=== PATIENT | male | born 1970 | race Caucasian/White ===

== ENCOUNTER 2019-06-04 09:53 | Emergency (ER) | payer SELFPAY ==
[2019-06-04] MEDS ORDERED: HYDROmorphone 0.5 MG/0.5 ML Syringe IVPUSH ONE ×2 (11:12→13:39)
[2019-06-04] MEDS ORDERED: Sodium Chloride 0.9% 10 ML Syringe FLUSH PRN (11:12)
[2019-06-04] MEDS ORDERED: Sodium Chloride 0.9% 1,000 ML IV SCH (11:15)
--- NOTE | 2019-06-04 11:21 | EDM.PDOC ---
ED HPI GENERAL MEDICAL PROBLEM - General Chief Complaint: Skin Complaint Stated Complaint: ABCESS ON LEG X 2 Time Seen by Provider: 06/04/19 11:20 Source of Information: Reports: Patient History Limitations: Reports: No Limitations - History of Present Illness INITIAL COMMENTS - FREE TEXT/NARRATIVE: Patient is a 48-year-old male who presents to the ED complaining of right posterior leg pain. Pain is isolated to the midportion of his hamstring and radiates down to the midportion of his calf. This started this past week Tuesday after being admitted to the hospital for chest pain rule out. Patient was evaluated at the [facility] ER for chest pain. He was transferred from [place] to [facility] and admitted for 24-hour observation. They advised it was not his heart. During that time he developed pain to the posterior aspect of his calf. States he can feel 2 knots to the right calf and also to the posterior aspect of his upper leg with some redness that developed. He's had some chills but denies any chest pain, shortness of breath, abdominal pain, nausea or vomiting, or any additional complaints. States with any plantar and dorsiflexion of the right foot the pain gets worse. He does have pain with ambulation. He has no history of blood clots. States he was seen by his PCP on Tuesday with ultrasound obtained to rule out blood clot to which none was noted. He questions if there is a blood clot now and/or possible cellulitis since swelling and pain have worsened. He's had a history of AAA repair as well as coronary artery stent. Again he denies any abdominal pain, tearing sensation to his abdomen or leg. He is on plavix and ASA. Right Posterior Leg Pain Score (Numeric/FACES): 7 - Related Data Allergies Allergy/AdvReac Type Severity Reaction Status Date / Time morphine Allergy Itching Verified 06/04/19 10:32 Tetanus Vaccines and Toxoid Allergy Swelling Verified 06/04/19 10:32 Home Meds: Home Meds Acetaminophen/HYDROcodone [Rochester 325-5 MG] 1 tab PO Q6H PRN #8 tablet 06/04/19 [ Rx] Aspirin [Halfprin] 81 mg PO DAILY 06/04/19 [History] Clopidogrel Bisulfate [Plavix] 75 mg PO DAILY 06/04/19 [History] Doxycycline [Vibramycin] 100 mg PO BID #20 cap 06/04/19 [Rx] Enalapril [Vasotec] 10 mg PO DAILY 06/04/19 [History] Past Medical History Cardiovascular History: Reports: High Cholesterol, Hypertension, Other (See Below) Other Cardiovascular History: Triple A repair 6 years ago Psychiatric History: Reports: Addiction Endocrine/Metabolic History: Reports: Other (See Below) Other Endocrine/Metabolic History: border line diabetic "i think I take a pill for that too" - Past Surgical History Cardiovascular Surgical History: Reports: AAA Repair, Coronary Artery Stent, Other (See Below) Other Cardiovascular Surgeries/Procedures: 3 stents Social & Family History - Tobacco Use Smoking Status *Q: Current Every Day Smoker Years of Tobacco use: 30 Packs/Tins Daily: 1 - Caffeine Use Caffeine Use: Reports: Coffee - Recreational Drug Use Recreational Drug Use: Yes Drug Use in Last 12 Months: Yes Recreational Drug Type: Reports: Methamphetamine ED ROS GENERAL - Review of Systems Review Of Systems: ROS reveals no pertinent complaints other than HPI. ED EXAM, SKIN/RASH Exam: See Below Exam Limited By: No Limitations General Appearance: Alert, WD/WN, Mild Distress Ears: Hearing Grossly Normal Nose: Normal Inspection Throat/Mouth: Normal Inspection, Normal Oropharynx, Normal Voice, No Airway Compromise Head: Atraumatic, Normocephalic Neck: Normal Inspection, Supple, Non-Tender, Full Range of Motion Respiratory/Chest: No Respiratory Distress, Lungs Clear, Normal Breath Sounds, No Accessory Muscle Use, Chest Non-Tender Cardiovascular: Normal Peripheral Pulses, Regular Rate, Rhythm, No Murmur Peripheral Pulses: 2+: Radial (R), Femoral (L), Femoral (R), Posterior Tibial (L ), Posterior Tibial (R) GI/Abdominal: Normal Bowel Sounds, Soft, Non-Tender, No Organomegaly, No Distention Back Exam: Normal Inspection Neurological: Alert, Oriented, CN II-XII Intact, Normal Cognition, No Motor/ Sensory Deficits Psychiatric: Normal Affect, Normal Mood Skin: Warm, Dry, Intact, Normal Color Comments: Mild swelling noted with palpation of the mid aspect of the right posterior thigh with erythema present. No open sores or redness streaking up his leg. He also some pain to the mid calf with palpation with a small knot present. No sensory changes. With passive dorsiflexion and plantarflexion there is increasing pain to his posterior leg. Course - Vital Signs Last Recorded V/S: Last Vital Signs Temp 97.4 F 06/04/19 10:34 Pulse 96 06/04/19 15:20 Resp 20 06/04/19 15:20 BP 119/78 06/04/19 15:20 Pulse Ox 96 06/04/19 15:20 - Orders/Labs/Meds Labs: Laboratory Tests 06/04/19 06/04/19 06/04/19 Range/Units 11:25 11:25 14:05 WBC 12.90 H (4.23-9.07) K/mm3 RBC 4.52 L (4.63-6.08) M/mm3 Hgb 12.5 L (13.7-17.5) gm/dl Hct 38.0 L (40.1-51.0) % MCV 84.1 (79.0-92.2) fl MCH 27.7 (25.7-32.2) pg MCHC 32.9 (32.2-35.5) g/dl RDW Std Deviation 39.8 (35.1-43.9) fL Plt Count 379 H (163-337) K/mm3 MPV 9.1 L (9.4-12.3) fl Neut % (Auto) 72.6 H (34.0-67.9) % Lymph % (Auto) 15.0 L (21.8-53.1) % Gregory % (Auto) 9.5 (5.3-12.2) % Eos % (Auto) 2.5 (0.8-7.0) Baso % (Auto) 0.2 (0.1-1.2) % Neut # (Auto) 9.37 H (1.78-5.38) K/mm3 Lymph # (Auto) 1.94 (1.32-3.57) K/mm3 Gregory # (Auto) 1.22 H (0.30-0.82) K/mm3 Eos # (Auto) 0.32 (0.04-0.54) K/mm3 Baso # (Auto) 0.02 (0.01-0.08) K/mm3 Sodium 138 (136-145) mEq/L Potassium 3.6 (3.5-5.1) mEq/L Chloride 102 (98-107) mEq/L Carbon Dioxide 29 (21-32) mEq/L Anion Gap 10.6 (5-15) BUN 19 H (7-18) mg/dL Creatinine 1.0 (0.7-1.3) mg/dL Est Cr Clr Drug Dosing 95.17 mL/min Estimated GFR (MDRD) > 60 (>60) mL/min BUN/Creatinine Ratio 19.0 H (14-18) Glucose 111 H (74-106) mg/dL Lactic Acid 1.6 (0.4-2.0) mmol/L Calcium 8.7 (8.5-10.1) mg/dL Total Bilirubin 0.2 (0.2-1.0) mg/dL AST 4 L (15-37) U/L ALT 20 (16-63) U/L Alkaline Phosphatase 89 (46-116) U/L C-Reactive Protein 12.9 H* (<1.0) mg/dL Total Protein 7.2 (6.4-8.2) g/dl Albumin 2.7 L (3.4-5.0) g/dl Globulin 4.5 gm/dL Albumin/Globulin Ratio 0.6 L (1-2) Meds: Medications Discontinued Medications Generic Name Dose Route Start Last Admin Trade Name Freq PRN Reason Stop Dose Admin Doxycycline Hyclate 100 mg 06/04/19 13:32 06/04/19 14:18 Vibramycin PO 06/04/19 13:33 100 mg ONETIME ONE Administration Hydromorphone HCl 0.5 mg 06/04/19 11:12 06/04/19 11:26 Dilaudid IVPUSH 06/04/19 11:13 0.5 mg ONETIME ONE Administration Hydromorphone HCl 0.5 mg 06/04/19 13:39 06/04/19 14:16 Dilaudid IVPUSH 06/04/19 13:40 0.5 mg ONETIME ONE Administration Sodium Chloride 1,000 mls @ 250 mls/hr 06/04/19 11:15 06/04/19 13:41 Normal Saline IV 999 mls/hr ASDIRECTED LANA Infusion Cefazolin Sodium/Dextrose 1 gm 50 mls @ 100 mls/hr 06/04/19 13:23 / Premix IV 06/04/19 13:52 ONETIME ONE Doxycycline Hyclate 100 mg/ 100 mls @ 100 mls/hr 06/04/19 13:32 06/04/19 14: 17 Sodium Chloride IV 06/04/19 14:31 100 mls/hr ONETIME ONE Administration Sodium Chloride 10 ml 06/04/19 11:12 06/04/19 11:27 Saline Flush FLUSH 10 ml ASDIRECTED PRN Administration Keep Vein Open - Re-Assessments/Exams Free Text/Narrative Re-Assessment/Exam: Patient may have a DVT or cellulitis sites developing. I will obtain medical records from [facility] from recent hospitalization. I will also rule out DVT by ultrasound. Initial labs and studies will include: CBC, chem 14, CRP, and also revealed duplex of the right lower extremity. I ordered IV with Dilaudid and normal saline. 1200 Labs reviewed: White blood cell count 12.90, hemoglobin low at 12.5, platelet count high as 379, neutrophil percent is 72.6 with slight left shift 9.37. Sodium 138, potassium 3.6, AG 10.6, creatinine normal. Glucose 111. CRP is 12.9. 06/04/19 12:33 no results ultrasound results as of yet. 06/04/19 13:23 Ultrasound impression: 2 findings within posterior right thigh with measurements as noted above most likely representing liquefying hematomas. 06/04/19 13:[address] Vidal [facility] General Surgeon. Suspects findings may related to an abscess with his history of drug use. Recommended placing the patient on doxycycline 100 mg twice a day with close follow-up. 1338 Reassessment, HR 104 pain moderate intensity. With history of chills will obtain lactic acid and blood cultures x 2 prior to antibiotics. Ordered dilaudid 0.5mg IVP and remainder of IVF's to be ran in at 999mls/hr. 06/04/19 14:19 Blood cultures and lactic acid was just ordered. 06/04/19 14:53 Lactic acid 1.6. I will discharge patient home with prescription for doxycycline. Patient will call Dr. Vidal [facility] today/ tomorrow to schedule an appt. Return precautions discussed with patient. He agreed with plan and had no further questions or concerns. Discharge instructions as documented. Departure - Departure Time of Disposition: 14:57 Disposition: Home, Self-Care 01 Condition: Good Clinical Impression: Cellulitis and abscess of right leg Hematoma of right thigh Qualifiers: Encounter type: initial encounter Qualified Code(s): S70.11XA - Contusion of right thigh, initial encounter - Discharge Information Prescriptions: Acetaminophen/HYDROcodone [Rochester 325-5 MG] 1 tab PO Q6H PRN #8 tablet PRN Reason: Pain (Severe 7-10) Doxycycline [Vibramycin] 100 mg PO BID #20 cap Instructions: Skin Abscess, Cellulitis, Adult Referrals: Telma Hooks, FLOOR FINISHER [Primary Care Provider] - Forms: ED Department Discharge Additional Instructions: Please call Dr. Vidal with General Surgery at [facility] office today or tomorrow to schedule an appt to be evaluated the end of this week. Take the full course of doxycycline as prescribed. Apply warm compresses to the affected area 4 times a day, 30 minutes in duration. Take Aleve one to 2 tabs twice a day as needed for pain. For severe pain take Rochester one tab every [address] while taking the Rochester. Do not drive today since receiving a sedative medication. Monitor for any new or worsening symptoms. If so return back to the ED for reevaluation.
--- NOTE | 2019-06-04 13:03 | US ---
Right lower extremity deep venous ultrasound: Duplex and color flow imaging was obtained of the right common femoral, proximal greater saphenous, superficial femoral, popliteal, posterior tibial and peroneal veins. Left common femoral vein is also evaluated. Findings: Two complicated cystic structures are seen within the posterior right thigh. One of these findings measure 8.5 x 4.4 x 3.4 cm and second finding measures 4.7 x 3.3 x 2.6 cm. These findings are most likely due to partially liquefying hematomas. Normal phasic flow, augmentation and compression are seen. Impression: 1. Two findings within the posterior right thigh with measurements as noted above most likely representing liquefying hematomas. Aspiration would confirm if clinically needed. 2. No evidence of deep venous thrombosis is seen within the right lower extremity or within the left common femoral vein. Diagnostic code #3
[2019-06-04] MEDS ORDERED: ceFAZolin 1 GM in Premix Bag 1 BAG IV ONE (13:23)
[2019-06-04] MEDS ORDERED: Doxycycline 100 MG Cap PO ONE (13:32)
[2019-06-04] MEDS ORDERED: Doxycycline 100 MG in Sodium Chloride 0.9% 100 ML IV ONE (13:32)
== END 2019-06-04 15:20 | disposition home or self-care (01) ==
LOC: JD.ED 09:53
DX: M79.81 Nontraumatic hematoma of soft tissue (principal); L02.415 Cutaneous abscess of right lower limb; L03.115 Cellulitis of right lower limb; I10 Essential (primary) hypertension; F17.210 Nicotine dependence, cigarettes, uncomplicated; Z88.5 Allergy status to narcotic agent; Z88.7 Allergy status to serum and vaccine; Z79.82 Long term (current) use of aspirin; Z79.02 Long term (current) use of antithrombotics/antiplatelets; Z79.899 Other long term (current) drug therapy
CPT/HCPCS: 36415; 80053; 83605; 85025; 86140; 87040; 93971; 96361; 96365; 96375; 96376; 99283; A9270; J1170; J3490; J7030; J7040; 99284

== ENCOUNTER 2019-09-20 11:56 | Emergency (ER) | payer SELFPAY ==
[2019-09-20] MEDS ORDERED: Sodium Chloride 0.9% 10 ML Syringe FLUSH PRN (12:29)
--- NOTE | 2019-09-20 14:42 | EDM.PDOC ---
ED HPI GENERAL MEDICAL PROBLEM - General Chief Complaint: Lower Extremity Injury/Pain Stated Complaint: SWOLLEN RIGHT LEG Time Seen by Provider: 09/20/19 12:25 Source of Information: Reports: Patient, RN Notes Reviewed - History of Present Illness INITIAL COMMENTS - FREE TEXT/NARRATIVE: 49-year-old male has presented to our ED with concerns about possible right leg , foot and ankle infection. He has history of soft tissue infection of the right lower extremity and also osteomyelitis right lower extremity. Presents here today because he had bee on a 4 month course of IV antibiotics and states he stopped IV antibiotics 5 days early to catch a ride from [place] up here to [place] which is where he normally lives and works. He does have continued mild right ache of the right foot and ankle and also has had some residual swelling of the right lower leg foot and ankle but never did go away. He has not been running recent fever or chills. He is currently ambulatory without difficulty. No current obvious infected lesions. - Related Data Allergies Allergy/AdvReac Type Severity Reaction Status Date / Time morphine Allergy Itching Verified 09/20/19 12:07 Tetanus Vaccines and Toxoid Allergy Swelling Verified 09/20/19 12:07 Home Meds: Home Meds Aspirin [Halfprin] 81 mg PO DAILY 06/04/19 [History] Clopidogrel Bisulfate [Plavix] 75 mg PO DAILY 06/04/19 [History] Enalapril [Vasotec] 10 mg PO DAILY 06/04/19 [History] Doxycycline [Vibramycin] 100 mg PO BID #20 tab 09/20/19 [Rx] Past Medical History Cardiovascular History: Reports: High Cholesterol, Hypertension, Other (See Below) Other Cardiovascular History: Triple A repair 6 years ago Psychiatric History: Reports: Addiction Endocrine/Metabolic History: Reports: Other (See Below) Other Endocrine/Metabolic History: border line diabetic "i think I take a pill for that too" - Past Surgical History Cardiovascular Surgical History: Reports: AAA Repair, Coronary Artery Stent, Other (See Below) Other Cardiovascular Surgeries/Procedures: 3 stents Social & Family History - Tobacco Use Smoking Status *Q: Current Every Day Smoker Years of Tobacco use: 35 Packs/Tins Daily: 1 - Caffeine Use Caffeine Use: Reports: Coffee - Recreational Drug Use Recreational Drug Use: No Review of Systems - Review of Systems Review Of Systems: See Below Constitutional: Denies: Chills, Fever Mouth/Throat: Reports: No Symptoms Respiratory: Denies: Shortness of Breath, Pleuritic Chest Pain Cardiovascular: Denies: Chest Pain GI/Abdominal: Denies: Abdominal Pain, Nausea, Vomiting Musculoskeletal: Reports: Other (Continued mild swelling of right distal lower leg ankle and foot, occasional mild achiness of distal leg ankle and foot) Skin: Reports: No Symptoms Neurological: Reports: No Symptoms ED EXAM, GENERAL - Physical Exam Exam: See Below General Appearance: Alert, No Apparent Distress Throat/Mouth: Normal Inspection, Normal Oropharynx Head: Atraumatic Neck: Supple Respiratory/Chest: No Respiratory Distress, Lungs Clear, Normal Breath Sounds GI/Abdominal: Soft, Non-Tender Extremities: Other (Mild swelling of right distal leg ankle and foot, surgical scars are present distal right ankle and foot medially. No localized warmth or erythema or unusual tenderness. No calf or upper leg tenderness) Skin Exam: Warm, Dry, Normal Color, No Rash Course - Vital Signs Last Recorded V/S: Last Vital Signs Temp 97.8 F 09/20/19 12:05 Pulse 67 09/20/19 12:05 Resp 16 09/20/19 12:05 BP 142/99 H 09/20/19 12:05 Pulse Ox 99 09/20/19 12:05 - Orders/Labs/Meds Labs: Laboratory Tests 09/20/19 09/20/19 09/20/19 Range/Units 12:53 12:53 12:53 WBC 7.19 (4.23-9.07) K/mm3 RBC 3.75 L (4.63-6.08) M/mm3 Hgb 9.7 L D (13.7-17.5) gm/dl Hct 30.2 L (40.1-51.0) % MCV 80.5 D (79.0-92.2) fl MCH 25.9 (25.7-32.2) pg MCHC 32.1 L (32.2-35.5) g/dl RDW Std Deviation 43.0 (35.1-43.9) fL Plt Count 395 H (163-337) K/mm3 MPV 9.0 L (9.4-12.3) fl Neut % (Auto) 55.8 (34.0-67.9) % Lymph % (Auto) 28.5 (21.8-53.1) % Beltrami % (Auto) 11.4 (5.3-12.2) % Eos % (Auto) 3.6 (0.8-7.0) Baso % (Auto) 0.7 (0.1-1.2) % Neut # (Auto) 4.01 (1.78-5.38) K/mm3 Lymph # (Auto) 2.05 (1.32-3.57) K/mm3 Beltrami # (Auto) 0.82 (0.30-0.82) K/mm3 Eos # (Auto) 0.26 (0.04-0.54) K/mm3 Baso # (Auto) 0.05 (0.01-0.08) K/mm3 ESR 52 H (0-15) mm/hr Sodium 140 (136-145) mEq/L Potassium 4.0 (3.5-5.1) mEq/L Chloride 108 H (98-107) mEq/L Carbon Dioxide 22 (21-32) mEq/L Anion Gap 14.0 (5-15) BUN 18 (7-18) mg/dL Creatinine 0.9 (0.7-1.3) mg/dL Est Cr Clr Drug Dosing 101.39 mL/min Estimated GFR (MDRD) > 60 (>60) mL/min BUN/Creatinine Ratio 20.0 H (14-18) Glucose 108 H (74-106) mg/dL Calcium 8.8 (8.5-10.1) mg/dL Total Bilirubin 0.1 L (0.2-1.0) mg/dL AST 22 (15-37) U/L ALT 23 (16-63) U/L Alkaline Phosphatase 94 (46-116) U/L C-Reactive Protein 4.9 H* (<1.0) mg/dL Total Protein 6.7 (6.4-8.2) g/dl Albumin 2.7 L (3.4-5.0) g/dl Globulin 4.0 gm/dL Albumin/Globulin Ratio 0.7 L (1-2) Meds: Medications Discontinued Medications Generic Name Dose Route Start Last Admin Trade Name Freq PRN Reason Stop Dose Admin Doxycycline Hyclate 200 mg 09/20/19 15:36 09/20/19 15:58 Vibramycin PO 09/20/19 15:37 200 mg ONETIME ONE Administration Sodium Chloride 10 ml 09/20/19 12:29 Saline Flush FLUSH ASDIRECTED PRN Keep Vein Open - Re-Assessments/Exams Free Text/Narrative Re-Assessment/Exam: 09/23/19 07:22 White blood count 7190, C-reactive protein 4.9 sedimentation rate 52. Elevated sedimentation rate and C-reactive protein are concerning. He has had what sounds like several months of IV antibiotics. He is living up in [place]. He had to catch a ride to get here today and needs to get back now to [place]. Owing to come on back down for MRI. Did offer the option of seeing a provider [place] and having further investigation done up there but he wants to continue down here. Order has been provided for outpatient MRI right lower leg, ankle and foot to check for residual osteomyelitis outpatient basis. Departure - Departure Time of Disposition: 15:38 Disposition: Home, Self-Care 01 Condition: Fair Clinical Impression: Right leg pain, Right ankle pain, Right foot pain - Discharge Information Prescriptions: Doxycycline [Vibramycin] 100 mg PO BID #20 tab Instructions: Cellulitis, Adult, [id number], Cellulitis, Pediatric Referrals: PCP,Unknown [Primary Care Provider] - Forms: ED Department Discharge Additional Instructions: You have been given doxycycline 200 mg orally while here in the ED. Continue doxycyline 100 mg twice a day for now. That's prescription has been sent electronically to [facility], [place]. You're scheduled for MRI of the right lower extremity next September 26 at 8 AM [place] time at this hospital, check in at 7:45 for that. Than plan to follow-up with your regular clinic provider any time after September 26 preferably generally 23 or 24 for results. Call for that clinic appointment now. Sepsis Event Note - Evaluation Sepsis Screening Result: No Definite Risk - Focused Exam Date Exam was Performed: 09/23/19 Time Exam was Performed: 07:19
[2019-09-20] MEDS ORDERED: Doxycycline 100 MG Cap PO ONE (15:36)
== END 2019-09-20 16:00 | disposition home or self-care (01) ==
LOC: JD.ED 11:56
DX: M79.671 Pain in right foot (principal); M79.604 Pain in right leg; M25.571 Pain in right ankle and joints of right foot; F17.210 Nicotine dependence, cigarettes, uncomplicated; I10 Essential (primary) hypertension; E78.00 Pure hypercholesterolemia, unspecified; Z79.02 Long term (current) use of antithrombotics/antiplatelets; Z79.82 Long term (current) use of aspirin; Z79.899 Other long term (current) drug therapy; Z88.1 Allergy status to other antibiotic agents; Z88.5 Allergy status to narcotic agent; Z88.7 Allergy status to serum and vaccine
CPT/HCPCS: 36415; 80053; 85025; 85652; 86140; 99283; A9270